=== PATIENT | male | born 1960 | race Caucasian/White ===

== ENCOUNTER 2021-08-10 09:52 | Outpatient (CLI) | payer OTHER, SELFPAY ==
[2021-08-10 10:09] VITALS: BP 109/77; PULSE 67; RESP 18; TEMP 36.9; O2SAT 97; BMI 29.6
[2021-08-10 10:54] VITALS: BP 112/73; PULSE 82; RESP 18; TEMP 36.6; O2SAT 97
[2021-08-10 11:44] VITALS: BP 126/78; PULSE 68; RESP 16; TEMP 36.6; O2SAT 97
== END 2021-08-10 09:53 | disposition home or self-care (01) ==
LOC: OPS 09:54
PROVIDERS: Family Provider Family Medicine; Visit Provider Nurse Practitioner
DX: U07.1 COVID-19 (principal)
CPT/HCPCS: 96365

== ENCOUNTER 2021-08-16 13:12 | Emergency (ER) | payer OTHER, SELFPAY ==
[2021-08-16 13:30] VITALS: BP 115/73; PULSE 91; RESP 14; TEMP 37.2; O2SAT 93; BMI 29.6
--- NOTE | 2021-08-16 13:40 | XR_ITS ---
WS: [id number] Exam: XR chest 1V portable [id number] Date/Time of Exam: 08/16/2021 2:07 PM Reason For Exam: COVID No prior exams. Mild groundglass densities seen in the lateral right lung as well as the lower left lung zone. Heart size is normal. The mediastinum is not widened. The lungs are fully inflated. Areas of plaque atelect asis in the left lower lung zone. No pleural effusions. Bony structures are intact. XR/XR chest 1V portable [id number] IMPRESSION: 1. Mild groundglass densities seen in the lateral aspect of the right lung as w ell as the lower left lung zone. These changes may be chronic however a active pneumonia is not excluded. Areas of plaque atelectasis in the left base also.
[2021-08-16 17:11] VITALS: O2SAT 92; O2SAT 93
--- NOTE | 2021-08-16 20:10 | ED_ITS ---
HPI - COVID General: Chief Complaint: COVID symptoms Stated Complaint: COVID POSTIVE, LOW 02, SENT BY LULY MAKI Time Seen by Provider: 08/16/21 19:57 Triage information: Has fever, cough or shortness of breath . Exposure to COVID + person last 14 days History of Present Illness: HPI Narrative: Patient comes in today for complaints of increased shortness of breath. Patient was diagnosed with COVID 19 on the . Patient was given monoclonal antibodies on the . Since then patient had been having increased shortness of breath and feeling of malaise. Patient came in today due to concerns that he may be running low oxygen. Patient reported that his oxygen saturation at home ranged between 92 and 98%. Patient appears unwell but not toxic. Patient appears in no pain. Patient is alert and oriented. COVID 19 common symptoms: positive dyspnea COVID Results: No Data to Display Review of Systems Resp: Reports: dyspnea Physical Exam Const: COMMON NORMALS: patient oriented x3 and alert GENERAL APPEARANCE: well kempt Resp: COMMON NORMALS: normal respiratory effort EFFORT & INSPECTION: Yes able to speak in complete sentences AUSCULTATION: wheezes Cardio: COMMON NORMALS: regular rate and regular rhythm RATE: regular rate RHYTHM: regular rhythm Extremity: COMMON NORMALS: no pedal edema Neuro: COMMON NORMALS: patient oriented x3 SENSORIUM/ORIENTATION: Yes alert Psych: APPEARANCE: Yes well kempt Skin: COMMON NORMALS: no rashes or lesions noted GENERAL SKIN EXAM: no rashes or lesions noted Course Vital Signs: Vital signs: Vital Signs Temperature 98.9 F 08/16/21 13:30 Pulse Rate 99 08/16/21 20:51 Respiratory Rate 20 H 08/16/21 20:51 Blood Pressure 130/78 08/16/21 20:51 Pulse Oximetry 92 08/16/21 20:51 MDM - COVID MDM Narrative: Medical decision making narrative: 60-year-old male patient comes in today with complaints increased shortness of breath and low oxygen at home. On exam lungs had air movement throughout tiwari with occasional wheeze. Heart rate was regular without any ectopic beats. Abdomen soft nontender. No edema is noted in the extremities. Vital signs were normal. Differential diagnosis includes pneumonia due to COVID-19, hypoxia, viral syndrome, respiratory distress. No signs of serious illness was noted. Chest x-ray did confirm viral pneumonia. Patient was tested for oxygen and was cleared for no need for oxygen at home at this time. Reviewed exam with patient with recommendations for treatment with albuterol inhaler and dexamethasone. Patient was also recommended to monitor for chest pain, worsening shortness of breath, in order to return to the ER for the symptoms. Patient agreed to plan with need to follow-up as needed. COVID Results: No Data to Display Discharge Plan Discharge Patient Disposition: Home Clinical Impression: Pneumonia due to COVID-19 virus Condition: Stable Prescriptions: New dexamethasone 6 mg tablet 6 mg PO DAILY Qty: 5 RF: 0 Discharge Orders: Discharge ED (Routine); Ordered 08/16/21 Ordered By: Jorge Griffin Referrals: Roland Flores [Family Provider] - Discharge Diet: Usual diet Discharge Activity: Increase activity as tolerated Patient Instructions: Viral Pneumonia (ED), Opioid Safety Activity Restrictions/Additional Instructions: Home and rest. Drink plenty of water. Use albuterol inhaler 2 puffs every 4 hours as needed for shortness of breath or wheezing. Take dexamethasone daily. Follow-up with primary care in 3 to 5 days for recheck. Return to the ER for worsening shortness of breath, severe chest pain, or oxygen saturations below 90%. Coding Level of Care Code ED Cereal Miller for Abhijit Reed
[2021-08-16 20:22] VITALS: O2SAT 93
[2021-08-16] MEDS: dexamethasone 10 mg/mL INJ IM (20:33)
[2021-08-16] MEDS: albuterol 8 gm MDI 2 PUFF INHALATION (20:45)
[2021-08-16 20:51] VITALS: BP 130/78; PULSE 99; RESP 20; O2SAT 92
== END 2021-08-16 20:57 | disposition home or self-care (01) ==
PROVIDERS: Emergency Provider Nurse Practitioner Family
DX: U07.1 COVID-19 (principal); J12.82 Pneumonia due to coronavirus disease 2019
CPT/HCPCS: 71045; 94640; 96372; 99283; J1100; J3535

== ENCOUNTER 2022-10-11 14:05 | Outpatient (CLI) | payer OTHER, SELFPAY ==
--- NOTE | 2022-10-11 | CT_ITS ---
WS: [id number] LDCT LUNG CANCER SCREENING TECHNIQUE: Noncontrast CT of the chest with coronal and sagittal reformatted images. CLINICAL INFORMATION: NICOTINE DEPENDENCE COMPARISON: None. DLP: 83.41 mGy.cm DIvol: Mean CTDIvol: 1.60 (mGy) All CT scans at [facility] use at least one of these dose optimization techniques: automat ed exposure control; mA and/or kV adjustment per patient size (includes targeted exams where dose is matched to clinical indication); or iterative reconstruction. FINDINGS: Normal caliber thoracic aorta. Mild aortic calcification. Coronary calcification. No mediastinal or h ilar lymphadenopathy. Several noncalcified pulmonary nodules largest measuring 5 mm in the LEFT upper lobe. Several smaller additional subcentimeter pulmonary nodules in the upper lobes. Normal GE junction. Adrenal glands are normal. Small LEFT renal cyst. No axillary lymphadenopathy. CT/CT lung screening [id number] IMPRESSION: LUNG-RADS: 2-Benign Appearance or Behavior FOLLOW UP: 12 Month: Continue annual screening with LDCT
== END 2022-10-11 14:06 | disposition home or self-care (01) ==
PROVIDERS: PCP Family Medicine; Visit Provider Family Medicine
DX: Z12.2 Encounter for screening for malignant neoplasm of respiratory organs (principal); F17.210 Nicotine dependence, cigarettes, uncomplicated
CPT/HCPCS: 71271

== ENCOUNTER 2023-11-19 09:46 | Outpatient (CLI) | payer OTHER, SELFPAY ==
--- NOTE | 2023-11-19 09:51 | CT_ITS ---
WS: [id number] LDCT LUNG CANCER SCREENING HISTORY: HX OF TOBACCO USE TECHNIQUE: Axial imaging performed from the apices to 1 cm below the costophrenic angles. Coronal and sagittal reformats are submitted with axial MIP series. All CT scans at [facility] use at least one of these dose optimization techniques: automated exposure control; mA and/or kV adjustment per patient size (includes targeted exams where dose is matched to clinical indication); or iterativ e reconstruction. DLP: 73.71 mGy.cm DIvol: Mean CTDIvol: 1.50 (mGy) COMPARISON: 10/11/2022 Diagnostic quality: Satisfactory Lungs: No suspicious or enlarging pulmonary nodule or mass. The nodules that was seen on the prior CT are not apparent today. This is probably due to volume averaging and slice selection. Linear scar in the anterior RIGHT upper lobe. No endobronchial lesions. Heart: Normal size heart with no pericardial effusion.. Scattered coronary artery calcifications. Other findings: No pericardial or pleural effusions. No adenopathy. Mild atherosclerosis aorta. Chest wall is negative. No significant hiatal hernia. No adrenal mass. Increase in thoracic kyphosis. IMPRESSION: CT/CT lung screening [id number] LUNG-RADS: 2-Benign Appearance or Behavior FOLLOW UP: 12 Month: Continue annual screening with LDCT OTHER FINDINGS (S MODIFIER): None.
== END 2023-11-19 09:47 | disposition home or self-care (01) ==
LOC: RAD 09:47
PROVIDERS: PCP Family Medicine; Visit Provider Family Medicine
DX: Z12.2 Encounter for screening for malignant neoplasm of respiratory organs (principal); Z87.891 Personal history of nicotine dependence; I70.0 Atherosclerosis of aorta
CPT/HCPCS: 71271